=== PATIENT | male | born 1965 | race Two or more races ===

== ENCOUNTER → 2016-08-01 | Outpatient (CLI) | payer OTHER | LOC: CIMAGING 16:05 | PROVIDERS: ATTEND Internal Medicine | DX: K80.20 Calculus of gallbladder without cholecystitis without obstruction (principal); M51.36 Other intervertebral disc degeneration, lumbar region; M51.37 Other intervertebral disc degeneration, lumbosacral region; M43.17 Spondylolisthesis, lumbosacral region | CPT/HCPCS: 74176-PO ==

== ENCOUNTER → 2016-08-08 | Outpatient (CLI) | payer OTHER | LOC: CIMAGING 12:32 | PROVIDERS: ATTEND Family Medicine | DX: R10.30 Lower abdominal pain, unspecified (principal); N50.3 Cyst of epididymis | CPT/HCPCS: 76882-PO ==